=== PATIENT | male | born 1960 | race Caucasian/White ===

== ENCOUNTER 2016-10-14 00:51 | Emergency (ER) | payer OTHER ==
[~2016-10-14] VITALS: Ht 172.7 cm; Wt 81.7 kg
--- NOTE | ~2016-10-14 | EKG ---
[place] [address] [facility] [place] [address] ELECTROCARDIOGRAM REPORT Name: WALTER ANDRADE Room #: DEP GAYATRI Somers#: [id number] Admission: 10/14/16 Attend Phys: Discharge: 10/14/16 Date of : 60 Report #: [id number] THIS REPORT FOR: //name// [facility] ED Test Date: 2016-10-14 Test Time: 01:03:51 Pat Name: WALTER ANDRADE Department: Room: Gender: M Private Client Advisor: [id number] : 1960 Requested By: Duong Kitchen Order Number: [id number] MD: Sulaiman Leggett Measurements Intervals [place] Rate: 102 P: 57 VT: 144 QRS: -30 QRSD: 91 T: 30 QT: 362 QTc: 472 Interpretive Statements Sinus tachycardia Probable left ventricular hypertrophy Baseline wander in lead(s) II,III,aVR,aVL,aVF,V1 No previous ECG available for comparison Electronically Signed On 10-14-2016 22:56:45 CDT by Sulaiman Leggett [email or web address] <ELECTRONICALLY SIGNED> By: Sulaiman Leggett MD 10/14/16 2256 Sulaiman Leggett MD /DAYRON
[2016-10-14 01:41] VITALS: BP 108/76
== END 2016-10-14 01:30 | disposition short-term general hospital (02) ==
LOC: ER 00:51
DX: G40.909 Epilepsy, unspecified, not intractable, without status epilepticus (principal); I10 Essential (primary) hypertension; F17.210 Nicotine dependence, cigarettes, uncomplicated

== ENCOUNTER 2016-11-04 17:54 | Inpatient (IN) | payer OTHER ==
[~2016-11-04] VITALS: Ht 172.7 cm; Wt 72.6 kg
--- NOTE | ~2016-11-04 | HC ---
[facility] [place] [address] CONSULTATION Name: WALTER ANDRADE Room #: 450-[facility] IN M.R.#: [id number] Admission: 11/04/16 Attend Phys: Sobia Merlos Discharge: Date of : 60 Report #: [id number] THIS REPORT FOR: //name// CC: DEANGELO physician/PCP Sobia Merlos DATE OF SERVICE: 11/06/2016 HISTORY OF PRESENT ILLNESS: The patient is a 55-year-old white male who was admitted emergently with a 20-minute seizure episode. His history dates back to 10/14/2016 when he was admitted at that time with seizures. He was sent to a correction house with [facility] for alcohol rehabilitation as an outpatient. He has been staying at the residential and apparently has a case consultant. The case consultant apparently went on vacation and he somehow missed a few doses of his Keppra. He was readmitted to [facility] with a 20-minute seizure. He was seen by Neurology. Lab studies are pending. He complains of some generalized weakness. EEG was negative, but this can be seen in a patient with seizures. We are seeing him in rehabilitation medicine consultation. PAST MEDICAL HISTORY: Includes the seizure disorder, history of hypertension, alcohol abuse, 1 pint of vodka per day, but none over the past 3 weeks. MEDICATIONS: Please see the full medication listing. SOCIAL HISTORY: Lives in a residential, 5 steps in, did not utilize any gait aids premorbidly, was fully independent with ADLs. REVIEW OF SYSTEMS: Did not offer any current complaints of chest pain, shortness of breath or abdominal discomfort. PHYSICAL EXAMINATION: GENERAL: A 55-year-old white male, in no obvious distress. VITAL SIGNS: Last recorded temperature 98.2, pulse 64, respirations 18, blood pressure 110/81. NEUROLOGIC: He is alert, pleasant. Dentition is poor. Facies are symmetric. He has functional range of motion of both upper extremities with strength appearing to be at least to 5-/5. Lower extremity strength is probably 4+ to 5-/5. DTRs are 1. Tone appeared to be intact. ASSESSMENT: A 55-year-old white male with the following problems: 1. Seizure disorder with breakthrough seizures. 2. Generalized weakness and debilitation. 3. Alcohol abuse with no alcohol for the past 3 weeks while being in alcohol rehab, this is not thought to be an alcohol withdrawal seizure. 4. Hypertension. [facility] [address] [place] [address] CONSULTATION Name: WALTER ANDRADE Room #: 450-[facility] IN M.R.#: [id number] Admission: 11/04/16 Attend Phys: Sobia Merlos Discharge: Date of : 60 Report #: [id number] PLAN: Therapy evaluations are underway. This includes PT, OT and speech. We will see how he does functionally and follow along with you regarding his rehab therapy needs. Thank you for asking us to assist in this patient's care. By: [id number] Lei Rojo MD /nt
--- NOTE | ~2016-11-04 | EKG ---
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 : 1960 Requested By: Duong Kitchen Order Number: [id number] MD: Johny Flanagan Measurements Intervals [place] Rate: 92 P: 60 AL: 149 QRS: -41 QRSD: 95 T: 23 QT: 366 QTc: 453 Interpretive Statements Sinus rhythm Left anterior fascicular block Abnormal R-wave progression, early transition Compared to ECG 10/14/2016 01:03:51 Left anterior fascicular block now present Sinus tachycardia no longer present Electronically Signed On 11-05-2016 17:06:55 CDT by Johny Flanagan [email or web address] <ELECTRONICALLY SIGNED> By: Johny Flanagan MD, [facility] 11/05/16 1706 1757 1757 Johny Flanagan MD, [facility] /EPI
[2016-11-04 17:56] VITALS: BP 133/95
[2016-11-04] MEDS ORDERED: KEPPRA 500 MG500 M1 PO (18:05)
[2016-11-04 18:14] LABS: ABSOLUTE NEUTROPHILS 5.2 thou/uL (1.4-8.2); HEMATOCRIT 38.5 % (42.0-52.0); HEMOGLOBIN 13.5 gm/dL (14.0-18.0); LYMPHOCYTES 17.9 % (24.0-44.0); MCH 33.7 pg (26.0-34.0); MCV 96.3 fL (80.0-100.0); MONOCYTES 10.5 % (1.0-8.0); PLATELET COUNT 233 thou/uL (150-400); POLYS 68.6 % (36.0-66.0); RDW 12.9 % (10.5-14.5); WBC 7.6 thou/uL (4.0-11.0)
[2016-11-04 18:17] LABS: MANUAL DIFF NO
[2016-11-04 18:18] LABS: ANION GAP 6 mmol/L (7-16); BUN 9 mg/dL (7-18); CALCIUM 9.2 mg/dL (8.5-10.1); CHLORIDE 105 mmol/L (98-107); CO2 25 mmol/L (21-32); CREATININE 0.7 mg/dL (0.7-1.3); GLUCOSE 105 mg/dL (74-106); POTASSIUM 3.6 mmol/L (3.5-5.1); SODIUM 136 mmol/L (136-145)
[2016-11-04 18:27] LABS: ALBUMIN 3.7 g/dL (3.4-5.0); ALKALINE PHOSPHATASE 62 U/L (46-116); DIRECT BILIRUBIN 0.1 mg/dL (<0.1-0.3); SGOT 23 U/L (15-37); SGPT 21 U/L (30-65); TOTAL BILIRUBIN 0.4 mg/dL (<0.1-1.0); TOTAL PROTEIN 6.9 g/dL (6.4-8.2); TROPONIN-I < 0.04 ng/mL (<0.04-0.07)
[2016-11-04 18:38] LABS: URINE BILIRUBIN NEGATIVE (Negative); URINE BLOOD NEGATIVE (Negative); URINE COLOR YELLOW; URINE GLUCOSE-RANDOM* NEGATIVE (Negative); URINE KETONES NEGATIVE (Negative); URINE LEUKOCYTES-REFLEX NEGATIVE (Negative); URINE PROTEIN (DIPSTICK) NEGATIVE (Negative); URINE UROBILINOGEN 0.2 E.U./dl (0.2-1.0)
[2016-11-04 18:47] LABS: AMP/METHAMP Negative (Negative); BARBITURATES Negative (Negative); BENZODIAZEPINES Negative (Negative); COCAINE Negative (Negative); METHADONE Negative (Negative); OPIATES Negative (Negative); PCP Negative (Negative); THC Negative (Negative)
[2016-11-04 20:00] VITALS: BP 145/103
[2016-11-04 20:09] VITALS: BP 139/88
[2016-11-04 23:56] VITALS: BP 125/74
[2016-11-05 04:02] VITALS: BP 123/81
[2016-11-05 07:04] VITALS: BP 128/91
[2016-11-05 11:18] VITALS: BP 121/85
[2016-11-05 15:14] VITALS: BP 103/68
[2016-11-05 19:02] VITALS: BP 116/82
[2016-11-06 03:34] VITALS: BP 104/71
[2016-11-06 07:05] VITALS: BP 110/81
[2016-11-06 12:29] VITALS: BP 136/86
[2016-11-06 12:34] LABS: FOLIC ACID 17.3 ng/mL (8.6-58.9)
[2016-11-06 15:07] VITALS: BP 130/82
[2016-11-11 01:10] LABS: ALPHA TOCOPHEROL 7.8 mg/L (5.3-17.5)
== END 2016-11-06 17:33 | DRG 100 ==
LOC: ER 17:54 → EROBS 19:23 → 4W 19:23
PROVIDERS: Emergency Medicine; Psychiatry & Neurology Neurology
DX: G40.901 Epilepsy, unspecified, not intractable, with status epilepticus (principal); G93.40 Encephalopathy, unspecified; I10 Essential (primary) hypertension; F10.20 Alcohol dependence, uncomplicated; F17.210 Nicotine dependence, cigarettes, uncomplicated; Y90.0 Blood alcohol level of less than 20 mg/100 ml; Z79.899 Other long term (current) drug therapy; Z91.018 Allergy to other foods
CPT/HCPCS: 10045

== ENCOUNTER 2016-11-06 16:28 | Inpatient (IN) | payer OTHER ==
[~2016-11-06] VITALS: Ht 172.7 cm; Wt 72.1 kg
--- NOTE | ~2016-11-06 | H ---
[facility] [place] [place] [address] HISTORY AND PHYSICAL Name: WALTER ANDRADE Room #: 512-P [facility] IN M.R.#: [id number] Admission: 11/06/16 Attend Phys: Lei Rojo MD Discharge: 11/14/16 Date of : 60 Report #: [id number] THIS REPORT FOR: //name// CC: Lei Rojo [facility] physician/PCP DATE OF SERVICE: 11/07/2016 HISTORY OF PRESENT ILLNESS: The patient is a 55-year-old white male who was admitted originally to [facility] with a 20-minutes seizure episode. His history dates back to 10/14/2016 when he was admitted at that time with seizures as well. He was sent to a [facility] with [facility] for alcohol rehabilitation as an outpatient. He had been staying at the retirement and apparently missed a few doses of his Keppra. He was readmitted to [facility] with the 20-minute above noted seizure. He was seen by Neurology and is continuing on the Keppra. He is noted to have decreased balance with functional mobility with mod assist for transfers. He also was needing assistance with functional mobility and ADLs. He has been admitted now for acute inpatient rehabilitation with the seizure disorder and the noted status epilepticus and the functional gait and mobility deficits. He was noted to have ataxic type gait with significant truncal ataxia noted. He also has poor sequencing of 2-3 step commands that was noted. He has the gait ataxia with an encephalopathy and the seizure disorder. PAST MEDICAL HISTORY: Includes the above noted seizure disorder, history of hypertension, alcohol abuse 1 pint of vodka per day but none over the past 3 weeks while he has been undergoing the therapy with [facility]. MEDICATIONS: Please see the full medication listing. SOCIAL HISTORY: Lives in a retirement, 5 steps. Did not utilize any gait aids premorbidly, was fully independent with ADLs. REVIEW OF SYSTEMS: No current complaints of chest pain, shortness of breath or abdominal discomfort. PHYSICAL EXAMINATION: GENERAL: A 55-year-old white male in no obvious distress. VITAL SIGNS: Last recorded temperature 98.8, pulse 68, respirations 117/82. The patient is alert, pleasant. HEENT: He has poor dentition. Facies are symmetric. CHEST: Sounded clear to auscultation. CARDIAC: Regular rate and rhythm. ABDOMEN: Slender, bowel sounds positive, nontender. GENITOURINARY AND RECTAL: Deferred. EXTREMITIES: No obvious asterixis was noted with testing upper extremities. [address] [address] HISTORY AND PHYSICAL Name: WALTER ANDRADE Room #: 512-P [facility] IN M.R.#: [id number] Admission: 11/06/16 Attend Phys: Lei Rojo MD Discharge: 11/14/16 Date of : 60 Report #: [id number] Strength is probably a 4-/5. Lower extremity strength is probably a 4+/5. DTRs are 1. Tone appeared intact. Functionally, however, he has significant truncal ataxia with functional mobility. There is some decreased short-term memory as well. Some latency to his responses. ASSESSMENT: A 55-year-old white male with the following problem list: 1. Encephalopathy. 2. Gait ataxia with truncal ataxia. 3. Status epilepticus. 4. Seizure disorder with breakthrough seizures. 5. Generalized weakness and debilitation. 6. History of alcohol abuse with no alcohol for the past 3 weeks while being in alcohol rehabilitation and this was not thought to be an alcohol withdrawal seizure. 7. Hypertension. PLAN: The patient is admitted for acute in-hospital inpatient rehabilitation. From a postadmission physician evaluation perspective, there are no relevant changes since the preadmission screening. Please see the above review of prior and current medical and functional conditions and comorbidities. Please see the patient's previous and current functional status. As far as risk of complications, there are multiple medical comorbidities as noted above. Initial plan of care involves the interdisciplinary acute inpatient rehabilitation program with the goal of maximizing the patient's functional independence, so that he can hopefully return back to his prior living situation. Measurable functional goals would be for him to become modified independent with transfers, mobility and ADLs and to improve as far as his cognition, so that he can return back to the home setting. Prognosis is reasonably good with estimated length of stay probably at least 10-14 days and likely longer as needed. Potential barriers would include his multiple medical comorbidities and decreased functional status, his gait instability and his cognitive issues. <ELECTRONICALLY SIGNED> By: Lei Rojo MD 11/20/16 1350 0932 1038 Lei Rojo MD /nt
--- NOTE | ~2016-11-06 | HC ---
[facility] [place] [address] [place] [address] CONSULTATION Name: WALTER ANDRADE Room #: 512-P [facility] IN M.R.#: [id number] Admission: 11/06/16 Attend Phys: Lei Rojo MD Discharge: 11/14/16 Date of : 60 Report #: [id number] THIS REPORT FOR: //name// CC: Lei Rojo [facility] physician/PCP DATE OF SERVICE: 11/09/2016 NEUROBEHAVIORAL STATUS EXAM ATTENDING PHYSICIAN: Lei Rojo M.D. SPECIAL SERVICES COORDINATOR: Osito Olivo, PhD CLINICAL PRESENTATION: The patient is a 55-year-old male admitted to the rehabilitation unit at [facility] for a comprehensive inpatient rehabilitation program to improve functional mobility and activities of daily living and self-care secondary to deficits from encephalopathy, gait ataxia, status epilepticus, seizure disorder with breakthrough seizures, generalized weakness and debilitation, history of alcohol abuse and hypertension. A complete description of his medical condition and history along with medications can be found in his medical records. Neuropsychological consultation was requested to provide assistance in the assessment of cognitive and emotional status and to provide recommendations and services. Prior to this most recent admission, the patient was living in a house with 2 other roommates. He has recently completed a 21-day alcohol treatment program. He reports a longstanding history of alcohol abuse and prior treatment. Prior to his abstinence of alcohol, he was drinking approximately 1 pine of vodka a day. The patient is with 1 child. His child lives in [place], [place]. He completed the 11th grade. 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 The patient has not worked for approximately 2 years. He indicates having been in the for 17 years. TECHNIQUES UTILIZED: Clinical interview, review of medical records, staff consultation and behavioral observation, mini mental status exam 2 standard version and clock drawing. EXAMINATION FINDINGS: The patient was alert and cooperative with the assessment. His mood is irritable. He accurately describes the reason for his hospitalization. There is no evidence of aphasia. He does not report auditory or visual hallucinations. Speech was articulate. He denies difficulty with appetite. His reports his mood as anxious with intermittent depression. Difficulty with memory and occasional word finding is reported. He indicates his appetite is within normal limits. The patient has 4 sisters, but he is estranged from his family. He indicates having likely history of concussion [facility] [address] [place] [address] CONSULTATION Name: WALTER ANDRADE Room #: 512-P [facility] IN M.R.#: [id number] Admission: 11/06/16 Attend Phys: Lei Rojo MD Discharge: 11/14/16 Date of : 60 Report #: [id number] following a seizure related activity. His performance on the MMSE 2 brief version is within normal limits with a raw score of 15 of 16. He was 3/3 for initial registration. He was 5/5 for orientation to time, 4/[address] and 3/3 for immediate recall of 3 items after a brief time delay and distraction. His performance on the MMSE 2 standard version was within normal limits with a raw score 26 of 30. He was 3/5 for serial 7's, 2/2 for naming, 3/3 for auditory comprehension. He could read and follow a single command and write a sentence. The patient had some difficulty with upper extremity dexterity in regard to ability to copy a simple geometric design. DIAGNOSTIC IMPRESSION: Alcohol use disorder -- current abstinence. Unspecified Anxiety Disorder Mild Neurocognitive Disorder, unspecidied with intermittent irritability and decreased tolerance for frustration RECOMMENDATIONS: The patient has likely returned to baseline cognitive functioning. He is irritable and increased effort is necessary to complete tasks and likely contributes to his reduced frustration tolerance. He may need assistance in the management of medication. However, the patient has no family to provide additional supervision upon discharge. It will be helpful to have him demonstrate the ability to carry out instrumental activities of daily living as necessary for medical self managmement. The patient does not drive and does not have a company driver's license. Adequate structure should be assessed at his current placement to ensure his ability to acquire nutrition and medication. Thank you very much for allowing me to provide the consultation on this patient. <ELECTRONICALLY SIGNED> By: Osito Olivo, PhD 11/16/16 1519 [id number] Osito Olivo, PhD /nt
[~2016-11-06 16:28] MED LIST: KEPPRA 500 MG500 M1 PO
[2016-11-06 17:30] VITALS: BP 130/85
[2016-11-07 05:13] LABS: HEMATOCRIT 42.7 % (42.0-52.0); HEMOGLOBIN 14.6 gm/dL (14.0-18.0); MCH 33.3 pg (26.0-34.0); MCHC 34.2 g/dL (28.0-37.0); MCV 97.4 fL (80.0-100.0); RBC 4.39 mil/uL (4.50-6.00); RDW 12.9 % (10.5-14.5); WBC 6.1 thou/uL (4.0-11.0)
[2016-11-07 05:19] LABS: CALCIUM 8.9 mg/dL (8.5-10.1); CREATININE 0.6 mg/dL (0.7-1.3); POTASSIUM 4.3 mmol/L (3.5-5.1)
[2016-11-07 06:13] VITALS: BP 117/82
[2016-11-07 15:51] VITALS: BP 134/98
[2016-11-08 06:29] VITALS: BP 111/77
[2016-11-08 15:43] VITALS: BP 123/75
[2016-11-09 06:07] VITALS: BP 108/91
[2016-11-10 05:02] VITALS: BP 101/69
[2016-11-10 16:05] VITALS: BP 161/81
[2016-11-11 04:10] VITALS: BP 113/76
[2016-11-11 07:21] VITALS: BP 120/86
[2016-11-12 06:30] VITALS: BP 114/83
[2016-11-12 15:46] VITALS: BP 117/85
[2016-11-12 19:47] VITALS: BP 127/98
[2016-11-13 06:20] VITALS: BP 131/84
[2016-11-13 16:00] VITALS: BP 117/87
[2016-11-14 06:14] VITALS: BP 120/80
[2016-11-14 11:45] VITALS: BP 134/92
[2016-11-14 12:20] VITALS: BP 130/89
[2016-11-14 12:29] VITALS: BP 120/80
[2016-11-14 13:00] VITALS: BP 120/83
[2016-11-14 15:35] VITALS: BP 120/80
== END 2016-11-14 17:15 | disposition home health service (06) | DRG 72 ==
PROVIDERS: Physical Medicine & Rehabilitation
DX: G93.40 Encephalopathy, unspecified (principal); F41.9 Anxiety disorder, unspecified; G31.84 Mild cognitive impairment of uncertain or unknown etiology; F10.10 Alcohol abuse, uncomplicated; I10 Essential (primary) hypertension; R27.0 Ataxia, unspecified; G40.901 Epilepsy, unspecified, not intractable, with status epilepticus; R53.81 Other malaise; K59.00 Constipation, unspecified; Z91.018 Allergy to other foods
CPT/HCPCS: 10112